=== PATIENT | female | born 1965 | race Caucasian/White ===

== ENCOUNTER 2019-07-14 10:04 | Emergency (ER) | payer SELFPAY ==
[2019-07-14 11:03] LABS: #Basophils 0.1 thou/uL (0.0-0.2); #Eosinphils 0.2 thou/uL (0.0-0.7); #Lymphocytes 3.6 thou/uL (1.20-3.40); #Monocytes 0.9 thou/uL (0.11-0.59); #Neutrophils 8.6 thou/uL (1.40-6.50); %Basophils 1.1 % (0.0-1.0); %Eosinophils 1.4 % (0.0-10.0); %Lymphocytes 26.6 % (21.0-51.0); %Monocytes 6.7 % (0.0-10.0); %Neutrophils 64.2 % (42.0-75.0); Hemoglobin 16.1 g/dL (12.0-16.0); Mean Corpuscular HGB CONC 33.6 g/dL (32.0-36.0); Mean Corpuscular Hemoglobin 31.5 pg (27.0-31.0); Mean Platelet Volume 8.5 fL (7.4-10.4); Platelet Count 324 thou/uL (130-400); RBC Distribution Width 12.2 % (11.5-14.5); White Blood Cell (WBC) Count 13.3 thou/uL (4.8-10.8)
[2019-07-14 11:26] LABS: ALT (SGPT) 16 U/L (8-55); AST (SGOT) 17 U/L (5-34); Albumin 4.1 g/dL (3.5-5.0); Alkaline Phosphatase 53 U/L (40-150); Anion Gap 9 mmol/L (10-20); BUN (Urea Nitrogen) 6 mg/dL (9.8-20.1); Bilirubin, Total 0.6 mg/dL (0.2-1.2); Calc. Creatinine Clearance 0 mL/min (70-130); Calcium 9.4 mg/dL (7.8-10.44); Carbon Dioxide 28 mmol/L (22-29); Chloride 104 mmol/L (98-107); Estimated GFR-MDRD 71; Globulin 3.3 g/dL (2.4-3.5); Glucose 94 mg/dL (70-105); Lipase 16 U/L (8-78); Potassium 4.5 mmol/L (3.5-5.1); Protein, Total 7.4 g/dL (6.0-8.3); Sodium 136 mmol/L (136-145)
[2019-07-14 11:52] LABS: Bilirubin Negative (Negative); Blood, Urine Negative (Negative); Clarity Clear (Clear); Glucose, Urine (Dipstick) Normal (Negative); Leukocyte Negative Leu/uL (Negative); Nitrite Negative (Negative); Protein, Urine (Dipstick) Negative (Neg-Trace); Urobilinogen Normal mg/dL (Less than 2)
[2019-07-14] MEDS ORDERED: ISOVUE-370 76%-LOCM 1 ML ONE (13:14)
--- NOTE | 2019-07-14 13:25 | CT ---
CT ABDOMEN AND PELVIS WITH IV CONTRAST 07/14/2019 CLINICAL INFORMATION: Rectal bleeding since chronic laxative use. Patient awoke this morning with severe abdominal cramping and uncontrollable vomiting. COMPARISON: None. Technique: Multiple contiguous axial CT images are obtained through the abdomen and pelvis with IV contrast. Cor onal reformatted images are provided. FINDINGS: Lower Chest: There is linear bibasilar atelectasis versus mild scarring. Vessels: Minimal vascular calcifications are seen within the abdominal aorta and involving the iliac arteries. Abdomen: Portal vein:Patent Gallbladder: Within normal limits for CT imaging. Liver: Enhancement of the liver was obtained in the arterial phase of imaging. A small focus of enhan cement is seen within the lateral segment left hepatic lobe with slightly greater degree of l enhancement of a portion of the posterior lateral segment hepatic parenchyma. This may represent a sm all vascular malformation. Liver otherwise has a normal CT appearance. Spleen: within normal limits. Pancreas: within normal limits. Adrenals: within normal limits. Kidneys: A very tiny too small to characterize hypodense lesion is seen in the midportion left kidney . The kidneys otherwise have a normal CT appearance bilaterally. Bowel: The descending and proximal sigmoid colon are decompressed. There is suggested mild thickening of the cheung of the distal descending and proximal sigmoid colon, but this may be related to incomplete distention as opposed to colitis. There is no adjacent pericolonic inflammatory changes pr esent. Appendix: The appendix is visualized and normal in caliber. Peritoneum: No ascites or free air; no fluid collection. Mesentery and Retroperitoneum: No enlarged mesenteric or retroperitoneal lymph nodes. Abdominal Wall: within normal limits. Pelvis: Reproductive Organs: There is a hypodense masslike structure within the right adnexa measuring 4.2 cm x 3.9 cm which may represent an enlarged right ovary versus right adnexal ovarian mass. This is certainly asymmetric compared to the left adnexal structures. Posterior to this masslike structure in the right adnexa is a 2.6 cm hypodense cystic lesion. A 1.2 cm hypodense structure is seen in the left ovary likely related to a small cyst or dominant fol licle. Pelvis within normal limits. Bladder: within normal limits. Bones: Mild degenerative changes are seen in the spine. IMPRESSION: 1. Right adnexal masslike structure with cystic structure seen posterior to this right adnexal massli ke structure. Further evaluation with pelvic ultrasound is recommended. 2. Suggested thickening in the distal descending and proximal sigmoid colon probably secondary to inc omplete distention, but this would be better evaluated with colonoscopy.
--- NOTE | 2019-07-14 16:49 | ULT ---
Exam: Pelvic ultrasound HISTORY: Pelvic and abdominal pain. Abnormal CT examination. COMPARISON: None TECHNIQUE: Multiple grayscale and color Doppler images were obtained in a transabdominal and transvag inal pelvic ultrasound. Spectral analysis of the Doppler waveforms of the ovaries were performed. FINDINGS: CERVIX: Multiple nabothian cysts are seen in the cervix. There is also a small amount of fluid seen i n the endocervical canal. UTERUS: Normal in size without focal abnormality. ENDOMETRIAL STRIPE: 5 mm which is within normal limits for a normal menstruating female patient but i s at the upper limits normal to borderline increased in a postmenopausal female patient. No fluid or fluid collection is seen in the endometrial canal. No free fluid is present. RIGHT OVARY: Right ovary is difficult to delineate. However, there is a heterogeneous hypoechoic mass with posterior shadowing seen in the right adnexal region which measures 3.4 cm in maximal dimensions. There is a hypoechoic structure posterior to the heterogeneous mass within the right adnexal region w hich is thought to most likely be related to the patient's right ovary. An anechoic cystic structure is seen at the inferior aspect of the presumed right ovary measuring 2.3 cm and demonstrate s characteristics of a simple cyst. Doppler evaluation of the presumed right ovarian tissue demonstrates arterial and venous flow. LEFT OVARY:Not visualized. IMPRESSION: 1. Heterogeneous mass with posterior shadowing seen in the right adnexal region likely ovarian origin and appears contiguous with a hypoechoic structure which is thought to represent normal ovarian tissue. In addition, there is a cyst involving the right ovary measuring 2.3 cm. DRAWER IN HAND consultation is recommended for further evaluation of the heterogeneous masslike structure in the right adnexa. 2. Nonvisualization of the the left ovary. 3. Small amount of fluid in the endocervical canal.
== END 2019-07-14 17:00 | disposition home or self-care (01) ==
LOC: ERS 10:04
DX: R19.09 Other intra-abdominal and pelvic swelling, mass and lump (principal); K57.92 Diverticulitis of intestine, part unspecified, without perforation or abscess without bleeding; F17.210 Nicotine dependence, cigarettes, uncomplicated
CPT/HCPCS: 36415; 74177; 76856; 80053; 81003; 82274; 83690; 85025; 86850; 86870; 86900; 86901; 86922; 96360; Q9966